=== PATIENT | female | born 1955 ===

== ENCOUNTER 2023-10-22 09:52 | Day surgery (SDC) | payer OTHER ==
[2023-10-21 10:09] LABS: Absolute Eosinophils 0.1 K/uL (0-0.5); Absolute Lymphocytes (CBC) 1.2 K/uL (0.7-4.9); Absolute Monocytes 0.4 K/uL (0.1-1.3); Absolute Neutrophil 3.8 K/uL (1.8-8.0); Basophils % 0.8 % (0-1.3); Eosinophils % 1.9 % (0-4.4); Hematocrit 45.7 % (36.0-45.0); Lymphocytes % 21.3 % (15.3-44.8); MCH 30.8 pg (27.0-35.0); MCHC 32.9 g/dL (32.0-36.0); MCV 93.4 fL (80-100); MPV 8.1 fL (7.6-11.3); Monocytes % 7.8 % (3.3-12.3); Neutrophils % 68.2 % (41.7-73.7); Platelets 294 thou/uL (152-406); RBC Red Blood Cell Count 4.89 M/uL (3.86-4.86); Red Cell Distribution Width 14.7 % (12.1-15.2)
[2023-10-21 10:15] LABS: Anion Gap 8.1 mEq/L (5.0-15.0); Potassium 5.1 mEq/L (3.5-5.1)
[2023-10-22] MEDS ORDERED: NA CHLORIDE 0.9% 1,000 ML ONE (10:25)
[2023-10-22] MEDS ORDERED: LIDOCAINE HCL/EPINEPHRINE 20 ML MDV ONE (11:28)
[2023-10-22] MEDS ORDERED: propofoL 200 MG/20 ML VIAL IV ONE (11:49)
[2023-10-22 14:16] VITALS: BP 117/70; TEMP 97; O2SAT 100
--- NOTE | 2023-10-22 16:18 | EKG ---
Test Date: 2023-10-21 Test Time: 09:13:19 Circular Stuffer: IRA MEASUREMENT RESULTS: Intervals: Rate: 76 GA: 190 QRSD: 94 QT: 406 QTc: 456 Lerna: P: 52 GA: 190 QRS: -4 T: 37 INTERPRETIVE STATEMENTS: Normal sinus rhythm Normal ECG No previous ECG available for comparison Electronically Signed On 10-22-23 16:16:28 CDT by Jhoan Ye
== END 2023-10-22 13:44 | disposition home or self-care (01) ==
LOC: OR 09:52
PROVIDERS: ATTEND Surgery
PROC: 0DBN8ZX Excision of Sigmoid Colon, Via Natural or Artificial Opening Endoscopic, Diagnostic (ICD-10-PCS; 2023-10-22)
PROC: 0DBM8ZX Excision of Descending Colon, Via Natural or Artificial Opening Endoscopic, Diagnostic (ICD-10-PCS; 2023-10-22)
PROC: 0DBK8ZX Excision of Ascending Colon, Via Natural or Artificial Opening Endoscopic, Diagnostic (ICD-10-PCS; 2023-10-22)
PROC: 0DBH8ZX Excision of Cecum, Via Natural or Artificial Opening Endoscopic, Diagnostic (ICD-10-PCS; principal; 2023-10-22 12:00)
DX: Z12.11 Encounter for screening for malignant neoplasm of colon (principal); K64.8 Other hemorrhoids; K52.9 Noninfective gastroenteritis and colitis, unspecified; D12.0 Benign neoplasm of cecum
CPT/HCPCS: 45380; 93005; 85025; 80048; 36415; 82947 ×2; 88305; J2704; J7030